=== PATIENT | female | born 1995 | race Caucasian/White ===

== ENCOUNTER 2018-01-06 12:04 | Emergency (ER) | payer OTHER ==
[2018-01-06] MEDS: IBUPROFEN 600 MG TAB PO (12:50)
== END 2018-01-06 12:53 | disposition home or self-care (01) ==
LOC: M ED 12:04
DX: S69.91XA Unspecified injury of right wrist, hand and finger(s), initial encounter (principal); W23.0XXA Caught, crushed, jammed, or pinched between moving objects, initial encounter; Y92.59 Other trade areas as the place of occurrence of the external cause; Y99.0 Civilian activity done for income or pay
CPT/HCPCS: 73130